=== PATIENT | female | born 2005 | race Caucasian/White ===

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

== ENCOUNTER 2024-02-15 12:23 | Emergency (ER) | payer OTHER ==
--- NOTE | 2024-02-15 13:55 | ED Physician Documentation ---
History of Present Illness - Stated complaint Stated Complaint: COUGH,CONGESTION,SORE THROAT - Chief complaint Chief Complaint: Resp - Additonal information Additional information: Patient is a 18 yo F presenting to the ED with concerns for Cough congestion sore throat symptoms have been going on since . Patient notes her son's boyfriend was here last night and was diagnosed with whooping cough she was told by his mom to come in to be tested given her symptoms. Patient presents with her mother who has not had any symptoms recently. Patient denies any significant fevers. She does not take any medications at home. She has been taking Tylenol and ibuprofen for symptoms. She denies being . She has been vaccinated in the past with tetanus and pertussis. She did receive all of her vaccinations as a child. She notes no history of pertussis. She has no significant productive cough. PD PAST MEDICAL HISTORY - Past Medical History Past Medical History: Yes Cardiovascular: None Respiratory: None Neuro: None Endocrine/Autoimmune: None GI: None LAWN CARE PROFESSIONAL: None : None HEENT: None Psych: Depression, Anxiety, ADD/ADHD Musculoskeletal: None Derm: None - Past Surgical History Past Surgical History: No - Present Medications Home Medications: Ambulatory Orders Medication Instructions Recorded Confirmed Loratadine [Claritin] 1 tab ORAL DAILY PRN 01/27/16 08/13/17 Cyclobenzaprine [Flexeril] 5 mg PO TID PRN #10 tablet 10/04/19 Ibuprofen [Motrin] 800 mg PO Q8H PRN #30 tablet 10/04/19 Azithromycin [Zithromax] 1 tab PO DAILY #4 tab 02/15/24 - Allergies Allergies/Adverse Reactions: Allergies Allergy/AdvReac Type Severity Reaction Status Date / Time No Known Drug Allergies Allergy Verified 02/15/24 12:26 - Social History Does the pt smoke?: No Smoking Status: Never smoker Does the pt drink ETOH?: No Does the pt have substance abuse?: No - Immunizations Immunizations are current?: Yes - POLST Patient has POLST: No PD ED PE NORMAL - Vitals Vital signs reviewed: Yes - General General: Alert and oriented X 3 - HEENT HEENT: Atraumatic - Neck Neck: Supple, no meningeal sign - Cardiac Cardiac: RRR, No murmur, No gallop, No rub - Respiratory Respiratory: No respiratory distress, Clear bilaterally - Abdomen Abdomen: Normal bowel sounds, Soft, Non tender, Non distended - Derm Derm: Normal color, Warm and dry, No rash - Extremities Extremities: No deformity, No tenderness to palpate, No edema, No calf tenderness / cord - Neuro Neuro: Alert and oriented X 3 Eye Opening: Spontaneous Motor: Obeys Commands Verbal: Oriented GCS Score: 15 - Psych Psych: Normal mood, Normal affect Results - Vitals Vitals: Oxygen O2 Source Room air - Labs Labs: Laboratory Tests 02/15/24 14:13 Nasal Adenovirus (PCR) NOT DETECTED Nasal B. parapertussis DNA (PCR) NOT DETECTED Nasal Coronavir 229E PCR NOT DETECTED Nasal Coronavir HKU1 PCR NOT DETECTED Nasal Coronavir NL63 PCR NOT DETECTED Nasal Coronavir OC43 PCR NOT DETECTED Nasal Enterovir/Rhinovir PCR NOT DETECTED Nasal Influenza B PCR NOT DETECTED Nasal Influenza A PCR NOT DETECTED Nasal Parainfluen 1 PCR NOT DETECTED Nasal Parainfluen 2 PCR NOT DETECTED Nasal Parainfluen 3 PCR NOT DETECTED Nasal Parainfluen 4 PCR NOT DETECTED Nasal RSV (PCR) NOT DETECTED Nasal B.pertussis DNA PCR NOT DETECTED Nasal C.pneumoniae (PCR) NOT DETECTED Romeo Human Metapneumo PCR NOT DETECTED Nasal M.pneumoniae (PCR) NOT DETECTED Nasal SARS-CoV-2 (PCR) NOT DETECTED PD Medical Decision Making - ED course Complexity details: reviewed old records, reviewed results ED course: Patient is a 18-year-old female who presents with concerns for pertussis as her boyfriend recently tested positive last night. She notes he started on azithromycin and his mom told her to come in this morning given he tested positive. Patient denies any nausea vomiting no productive cough no fevers at home. She notes generalized weakness sore throat congestion and dry cough. Patient vital stable on arrival she is afebrile nontachycardic and normotensive. Patient saturating well on room air. Discussed with patient will obtain swab for respiratory panel we will prophylactically treat patient given her symptoms on azithromycin with first dose of 500 mg here in ED.Given concerns for infection will discharge patient home and call on results as she is stable feel safe discharging patient home. Azithromycin sent to patient's for pharmacy prophylactically and will call patient results later. Respiratory panel came back negative. Patient was called and updated she is instructed she can finish the course of antibiotics and if her symptoms change or worsen she can always come back in to be retested. Patient understands and is agreeable with this plan. Instructed patient to quarantine from her boyfriend to avoid obtaining infections. Departure - Departure Disposition: 01 Home, Self Care Clinical Impression: Pertussis exposure, Viral syndrome Condition: Good Prescriptions: Azithromycin [Zithromax] 1 tab PO DAILY #4 tab Comments: You are seen here in the emergency department for your pertussis exposure of tested you for pertussis you need to take the antibiotics as prescribed. You need to watch for any severe cough severe chest pain severe shortness of breath. Return to the emergency department. Please follow-up in the outpatient setting with your PCP to ensure resolution of symptoms.You need to quarantine for 5 days and take antibiotics as prescribed. Forms: PCP List Discharge Date/Time: 02/15/24 14:42
[2024-02-15] MEDS: AZITHROMYCIN 250 MG TABLET PO STA (14:11)
[2024-02-15 14:42] VITALS: BP 106/67; O2SAT 100
[2024-02-15 15:11] LABS: B. PARAPERTUSSIS- RESP PCR PAN NOT DETECTED; B. PERTUSSIS- RESP PCR PANEL NOT DETECTED; C. PNEUMONIAE- RESP PCR PANEL NOT DETECTED; CORONAVIRUS 229E-RESP PCR NOT DETECTED; CORONAVIRUS HKU1-RESP PCR NOT DETECTED; CORONAVIRUS NL63-RESP PCR NOT DETECTED; CORONAVIRUS OC43-RESP PCR NOT DETECTED; HUMAN METAPNEUMOVIRUS NOT DETECTED; INFLUENZA A- RESP PCR PANEL NOT DETECTED; INFLUENZA B - RESP PCR PANEL NOT DETECTED; M. PNEUMONIAE- RESP PCR PANEL NOT DETECTED; PARAINFLUENZA VIRUS 1 NOT DETECTED; PARAINFLUENZA VIRUS 2 NOT DETECTED; PARAINFLUENZA VIRUS 3 NOT DETECTED; PARAINFLUENZA VIRUS 4 NOT DETECTED; RHINOVIRUS/ENTEROVIRUS NOT DETECTED; RSV- RESP PCR PANEL NOT DETECTED; SARS-CoV-2 -RESP PCR PANEL NOT DETECTED
== END 2024-02-15 14:42 | disposition home or self-care (01) ==
LOC: ED 12:23
DX: B34.9 Viral infection, unspecified (principal); Z20.818 Contact with and (suspected) exposure to other bacterial communicable diseases
CPT/HCPCS: 87633; 99283; A9270